=== PATIENT | male | born 1945 | race Caucasian/White ===

== ENCOUNTER → 2016-12-12 | Outpatient (CLI) | payer MEDICARE, OTHER ==
[~2016-12-12] MED LIST: ASPI81TA82 PO; ATOR40TA49 PO; CARV3.12 PO; CIPR500T4 PO; DIPH1TAB36 PO; RAMI10CA PO
[2016-12-12 09:55] LABS: BICARBONATE 24.4 MEQ/L (21.0-32.0); POTASSIUM 4.3 MEQ/L (3.5-5.1)
== END ==
LOC: PLAB 06:53
PROVIDERS: ATTEND Family Medicine
DX: I25.9 Chronic ischemic heart disease, unspecified (principal); N18.3 Chronic kidney disease, stage 3 (moderate)
CPT/HCPCS: 36415; 80048

== ENCOUNTER → 2017-03-09 | Outpatient (CLI) | payer MEDICARE, OTHER | LOC: PLAB 08:11 | PROVIDERS: ATTEND Surgery Vascular Surgery | DX: I73.9 Peripheral vascular disease, unspecified (principal) | CPT/HCPCS: 36415; 82565; 84520 ==

== ENCOUNTER → 2017-04-02 | Outpatient (CLI) | payer MEDICARE, OTHER ==
[2017-04-02 09:54] LABS: AUTOMATED NEUTROPHIL # 3.9 TH/MM3 (1.8-7.7); BASOPHIL % 0.7 % (0.0-2.0); EOSINOPHIL # 0.2 TH/MM3 (0-0.4); EOSINOPHIL % 2.5 % (0.0-4.0); HEMATOCRIT 44.8 % (39.0-51.0); HEMO FLAGS DIFF FINAL; LYMPH % 29.5 % (9.0-44.0); LYMPHOCYTE # 2.1 TH/MM3 (1.0-4.8); MEAN CELL VOLUME 90.9 FL (80.0-100.0); MEAN CORPUSCULAR HEMOGLOBIN 30.9 PG (27.0-34.0); MONO % 11.7 % (0.0-8.0); NEUT % 55.6 % (16.0-70.0); PLATELET COUNT 145 TH/MM3 (150-450); RED BLOOD COUNT 4.93 MIL/MM3 (4.50-5.90); RED CELL DISTRIBUTION WIDTH 14.3 % (11.6-17.2)
[2017-04-02 10:23] LABS: ALT (GPT) 31 U/L (12-78); ANION GAP 11 MEQ/L (5-15); AST (GOT) 22 U/L (15-37); BICARBONATE 23.4 MEQ/L (21.0-32.0); BLOOD UREA NITROGEN 36 MG/DL (7-18); CHLORIDE 106 MEQ/L (98-107); GLOMERULAR FILTRATION RATE 37 ML/MIN (>89); GLUCOSE,FASTING 107 MG/DL (74-99); POTASSIUM 4.5 MEQ/L (3.5-5.1); SODIUM (NA) 140 MEQ/L (136-145)
[2017-04-02 10:26] LABS: ALKALINE PHOSPHATASE 87 U/L (45-117); HDL CHOLESTEROL 32.5 MG/DL (40.0-60.0); LDL CHOLESTEROL 86 MG/DL (0-99); TOTAL BILIRUBIN ADULT 0.7 MG/DL (0.2-1.0)
== END ==
LOC: PLAB 06:33
PROVIDERS: ATTEND Family Medicine
DX: I43 Cardiomyopathy in diseases classified elsewhere (principal); E78.2 Mixed hyperlipidemia; I12.9 Hypertensive chronic kidney disease with stage 1 through stage 4 chronic kidney disease, or unspecified chronic kidney disease; N18.3 Chronic kidney disease, stage 3 (moderate)
CPT/HCPCS: 36415; 80053; 80061; 85025

== ENCOUNTER → 2017-05-21 | Outpatient (CLI) | payer MEDICARE, OTHER ==
[~2017-05-21] MED LIST changes: +ASPI81CH37 CHEW; +ATOR40TA16 PO; +CARV6.252 PO; +DOXA1TAB35 PO; +PLAV75TA29 PO; +PRAS10TA PO; +RAMI5CAP PO; +tylenol
[2017-05-21 09:16] LABS: AUTOMATED NEUTROPHIL # 4.6 TH/MM3 (1.8-7.7); BASOPHIL # 0.1 TH/MM3 (0-0.2); BASOPHIL % 0.9 % (0.0-2.0); EOSINOPHIL # 0.2 TH/MM3 (0-0.4); EOSINOPHIL % 2.3 % (0.0-4.0); HEMATOCRIT 41.3 % (39.0-51.0); HEMO FLAGS DIFF FINAL; LYMPH % 26.7 % (9.0-44.0); LYMPHOCYTE # 2.1 TH/MM3 (1.0-4.8); MEAN CELL VOLUME 90.9 FL (80.0-100.0); MEAN CORPUSCULAR HEMOGLOBIN 29.7 PG (27.0-34.0); MEAN CORPUSCULAR HGB CONC 32.7 % (32.0-36.0); MONO % 10.8 % (0.0-8.0); NEUT % 59.3 % (16.0-70.0); PLATELET COUNT 129 TH/MM3 (150-450); RED BLOOD COUNT 4.54 MIL/MM3 (4.50-5.90); RED CELL DISTRIBUTION WIDTH 14.3 % (11.6-17.2); WHITE BLOOD COUNT 7.8 TH/MM3 (4.0-11.0)
[2017-05-21 09:39] LABS: BICARBONATE 24.6 MEQ/L (21.0-32.0); POTASSIUM 4.6 MEQ/L (3.5-5.1)
== END ==
LOC: PLAB 06:41
PROVIDERS: ATTEND Internal Medicine Nephrology
DX: N18.3 Chronic kidney disease, stage 3 (moderate) (principal)
CPT/HCPCS: 36415; 80069; 85025

== ENCOUNTER 2017-05-28 06:31 | Observation (INO) | payer MEDICARE, OTHER ==
[~2017-05-28] VITALS: Ht 182.9 cm; Wt 85.3 kg
[2017-05-28] VITALS (12 sets, daily range): BP systolic 123–143; BP diastolic 66–85; PULSE 64–75; RESP 16–20; TEMP 95.8–98.2; O2SAT 92–97
[~2017-05-28 06:31] MED LIST changes: -ASPI81CH37 CHEW; -ATOR40TA16 PO; -CARV6.252 PO; -DOXA1TAB35 PO; -PLAV75TA29 PO; -PRAS10TA PO; -RAMI5CAP PO; -tylenol
[2017-05-28] MEDS ORDERED: CARV6.252 PO (07:00)
[2017-05-28] MEDS ORDERED: SODIUM BICARBONATE 154 MEQ/1000 ML NS IV SCH ×2 (07:00)
[2017-05-28] MEDS ORDERED: SODIUM CHLORIDE 0.9% FLUSH 10 ML FLUSH IV FLUSH PRN ×2 (07:00)
[2017-05-28] MEDS ORDERED: ATOR40TA16 PO (07:00)
[2017-05-28] MEDS ORDERED: DOXA1TAB35 PO (07:00)
[2017-05-28] MEDS ORDERED: tylenol (07:00)
[2017-05-28] MEDS ORDERED: RAMI5CAP PO (07:00)
[2017-05-28] MEDS ORDERED: ASPI81CH37 CHEW (07:00)
[2017-05-28] MEDS ORDERED: SODIUM CHLOR 0.9% 1000 ML INJ 1,000 ML IV ONE (07:00)
[2017-05-28 07:20] LABS: APTT (PATIENT) 26.5 SEC (24.3-30.1); PROTHROMBIN TIME - PATIENT 10.8 SEC (9.8-11.6)
[2017-05-28] MEDS ORDERED: MIDAZOLAM HCL 5 MG/5 ML VIAL ONE (09:01)
[2017-05-28] MEDS ORDERED: fentaNYL CITRATE 250 MCG/5 ML AMP ONE (09:02)
[2017-05-28] MEDS ORDERED: ceFAZolin 2 GM PREMIX 50 ML ONE (10:38)
[2017-05-28] MEDS ORDERED: MIDAZOLAM HCL 2 MG/2 ML VIAL ONE ×2 (10:57→12:21)
[2017-05-28 10:58] LABS: P2Y12 REACTION UNITS (PRU) 308 PRU (194-418)
[2017-05-28] MEDS ORDERED: HEPARIN SODIUM - IV 10,000 UNITS/10 ML VIAL ONE (12:23)
[2017-05-28] MEDS ORDERED: HEPARIN-D5W INJ 250 ML ONE (12:52)
[2017-05-28] MEDS ORDERED: HYDROmorphone HCL PF 1 MG/ML VIAL IVS PRN ×2 (14:45)
[2017-05-28] MEDS ORDERED: oxyCODONE/ACETAMINOPHEN 5 MG/325 MG TAB PO PRN ×2 (14:45)
--- NOTE | 2017-05-28 14:55 | PD.RAD ---
Post Procedure Progress Note Pre Procedure Diagnosis: (1) PAD (peripheral artery disease) (2) Claudication of both lower extremities Post Procedure Diagnosis: (1) PAD (peripheral artery disease) (2) Claudication of both lower extremities Procedure Date: May 28, 2017 Supervising Radiologist: Carlos Short Proceduralist/Assist: Lai Muñoz, RT(R), Marylou Baires, RT(R)() Estimated blood loss: 100 ml Anesthesia: Local, Conscious Sedation Plan of Activity Patient to Unit: ROPU Patient Condition: Good See PACS Report for procedural detail/treatment Vascular-Arterial Procedure Procedure 1 Procedure Site: Bilateral Leg Procedure(s): Angiogram, Angioplasty, Atherectomy Access Access Site(s): Right Femoral Artery, Left Femoral Artery Closure Site(s): Right vascular closure device, Left vascular closure device Treament Area: right common iliac stent left SFA atherectomy and angioplasty left profunda angioplasty Plan continue heparin drip and bicarbonate hydration until 8 PM loading dose of plavix 23hr observation check labs in AM Carlos Short MD May 28, 2017 14:55
[2017-05-28] MEDS ORDERED: CLOPIDOGREL 75 MG TAB PO SCH (15:00)
[2017-05-28] MEDS ORDERED: IODIXANOL 320 MG/ML 50 ML VIAL (for RAD SPEC) I-ARTERIAL ONE (15:00)
[2017-05-28] MEDS ORDERED: CLOPIDOGREL 300 MG TAB PO ONE (15:50)
[2017-05-28] MEDS ORDERED: HEPARIN-D5W INJ 250 ML IV SCH (16:00)
[2017-05-28] MEDS ORDERED: PILL SPLITTER OTHER PRN (16:00)
[2017-05-28] MEDS ORDERED: ONDANSETRON HCL 4 MG/2 ML VIAL ONE (16:19)
--- NOTE | 2017-05-28 18:26 | HHI.HP ---
[facility] Estevan Chiu MD Admission Diagnosis Diagnoses: Chief Complaint: Leg pain Travel History International Travel<30 Days: No Contact w/Intl Traveler <30 Da: No Traveled to Known Affected Are: No History of Present Illness Written by Mitchel Massey, acting as scribe for Dr. Garcia on 05/28/17 at 18: 09. Patient is a 72-year-old male with primary medical history of HTN, HLD, [place], PAD who came into the hospital for elective surgery. Patient has increasing pain with walking 1 year, left worse than her right. He also states it was burning and he needs to rest every time he walks a few steps. She is status post bilateral angiogram, angioplasty with endovascular repair by Dr. Short. Patient complains of nausea and had 1 vomiting. On exam he states it has resolved slightly. Patient verified his past medical history and surgical histories. Denies pain and discomfort. Denies SOB/ dyspnea. Denies chest pain , palpitations, headaches, dizziness. Denies fevers, chills, diarrhea. Denies dysuria. Review of Systems Except as stated in HPI: all other systems reviewed are Neg Past Family Social History Past Medical History HTN HLD PAD [place] 4 CAD Past Surgical History In 2005 Stents, angioplasty Left knee replacement Reported Medications Reported Meds & Active Scripts Active Reported [tylenol] Doxazosin (Doxazosin Mesylate) 2 Mg Tab 2 Mg PO DAILY Ramipril 5 Mg Cap 5 Mg PO DAILY Carvedilol 6.25 Mg Tab 6.25 Mg PO BID Atorvastatin (Atorvastatin Calcium) 40 Mg Tab 40 Mg PO HS Aspirin Low Dose (Aspirin) 81 Mg Chew 81 Mg CHEW DAILY Cipro (Ciprofloxacin HCl) 500 Mg Tab 500 Mg PO BID Carvedilol 3.125 mg (Carvedilol) 3.125 Mg Tab 0.5 Tab PO BID Lipitor 40 Mg Tab (Atorvastatin Calcium) 40 Mg Tab 40 Mg PO HS Aspir-81 (Aspirin) 81 Mg Tab 81 Mg PO HS Altace (Ramipril) 10 Mg Cap 5 Mg PO HS Tylenol Pm (Acetaminophen/Diphenhydramine HCl) Tab 2 Tab PO HS Allergies: Coded Allergies: Morphine (Verified Allergy, Severe, Hallucinations, 04/08/12) PT DENIES ALLERGY STATES MORE OF A REACTION Active Ordered Medications Current Medications Medications (Trade) Dose Ordered Sig/Gui Route Start Time Stop Time Status Last Admin (Sodium Bicarbonate 8.4% Inj/NS 1000 ml Inj) 1,000 ml @ 0 mls/hr TITRATE IV 05/28/17 07:00 05/29/17 06:59 05/28/17 07:36 (NS Flush) 2 ml UNSCH PRN IV FLUSH 05/28/17 07:00 (NS Flush) 2 ml UNSCH PRN IV FLUSH 05/28/17 07:00 (Dilaudid Pf Inj) 1 mg Q3H PRN IVS 05/28/17 14:45 (Percocet 5-325 Mg) 1 tab Q4H PRN PO 05/28/17 14:45 05/28/17 16:08 (Dilaudid Pf Inj) 1 mg UNSCH PRN IVS 05/28/17 14:45 Oxycodone/ Acetaminophen 1 tab 1 tab UNSCH PRN PO 05/28/17 14:45 (Heparin-D5W Inj) 250 ml @ 0 mls/hr TITRATE IV 05/28/17 16:00 05/28/17 20:00 (Plavix) 75 mg DAILY PO 05/29/17 08:00 (Aspirin Chew) 81 mg DAILY CHEW 05/29/17 09:00 (Lipitor) 40 mg HS PO 05/28/17 21:00 (Coreg) 1.5625 mg BID PO 05/28/17 21:00 (Cardura) 2 mg DAILY PO 05/29/17 09:00 (Altace) 5 mg DAILY PO 05/29/17 09:00 (Pill Splitter) 1 ea UNSCH PRN OTHER 05/28/17 16:00 (Zofran Inj) 4 mg Q6HR PRN IV PUSH 05/28/17 18:00 Family History States brother has heart problems also Social History Denies alcohol use Former smoker, quit 11 years ago Denies illicit drug use Physical Exam Vital Signs Vital Signs Date Time Temp Pulse Resp B/P Pulse Ox O2 Delivery O2 Flow Rate FiO2 05/28/17 16:30 72 16 123/70 96 05/28/17 16:00 72 16 128/76 96 05/28/17 15:30 66 16 143/78 96 05/28/17 15:00 75 16 137/79 96 05/28/17 14:30 68 16 140/83 96 05/28/17 14:15 68 16 134/79 96 05/28/17 14:00 66 16 125/76 95 05/28/17 13:45 69 16 127/77 95 05/28/17 13:30 96.0 70 16 129/85 95 05/28/17 07:06 96 Room Air 05/28/17 06:49 98.2 71 20 138/73 92 Physical Exam GENERAL: This is a well-nourished, well-developed patient, in no apparent distress. SKIN: No rashes, ecchymoses or lesions. Cool and dry. HEAD: Atraumatic. Normocephalic. No temporal or scalp tenderness. EYES: Pupils equal round and reactive. Extraocular motions intact. No scleral icterus. No injection or drainage. ENT: Nose without bleeding. Throat without erythema. Uvula midline. Airway patent. NECK: Trachea midline. Supple, nontender, no meningeal signs. CARDIOVASCULAR: Regular rate and rhythm without murmurs, gallops, or rubs. PPM left chest. RESPIRATORY: Clear to auscultation. Breath sounds equal bilaterally. No wheezes , rales, or rhonchi. GASTROINTESTINAL: Abdomen soft, non-tender, nondistended. Hypoactive bowel sounds MUSCULOSKELETAL: Extremities without clubbing, cyanosis, or edema. Bilateral lower extremity warm, pulses palpable DP/PT bilaterally. Bilateral groin with dressing, right groin soiled intact, left groin clean dry and intact. NEUROLOGICAL: Awake and alert. Oriented person, place, time. Motor and sensory grossly within normal limits. Normal speech. Laboratory Laboratory Tests Test 05/28/17 05/28/17 07:02 10:21 Prothrombin Time 10.8 Prothromb Time International 1.0 Ratio Activated Partial 26.5 Thromboplast Time Platelet Function P2Y12 React 308 Units Blood Urea Nitrogen 23 Creatinine 1.24 Estimat Glomerular Filtration 57 Rate Result Diagram: 05/28/17 1021 Assessment and Plan Problem List: (1) Claudication of both lower extremities ICD Code: I73.9 Status: Acute (2) PAD (peripheral artery disease) ICD Code: I73.9 Status: Acute (3) HLD (hyperlipidemia) ICD Code: E78.5 Status: Chronic (4) HTN (hypertension) ICD Code: I10 Status: Chronic (5) CAD (coronary artery disease) ICD Code: I25.10 Status: Chronic Assessment and Plan Patient is a 72-year-old male with primary medical history of HTN, HLD, [place], PAD who came into the hospital for elective surgery. PAD Status post bilateral angiogram, angioplasty with endovascular repair by Dr. Short - As per Dr. Short, continue heparin drip, and bicarbonate for hydration until 8 PM - Monitor Bilateral Groin insertion sites for bleeding - Pain management with Dilaudid IV, Percocet - Follow up labs in a.m CAD, Hx CABG HTN HLD - Continue home meds ASA 81 mg, doxazosyn 2mg daily, ramipril 5 mg daily, Plavix 75 mg daily, carvedilol 1.5625 mg - Continue atorvastatin 40 mg - Monitor BP trend Nausea, vomiting - Possibly anesthesia related. No abdominal cramping. - Zofran when necessary DVT prop on heparin drip Code Status Full Code Discussed Condition With Patient, nursing Mitchel Robertson May 28, 2017 18:26 Lolis Garcia MD May 28, 2017 18:32
[2017-05-28] MEDS ORDERED: ONDANSETRON HCL 4 MG/2 ML VIAL IV ONE (18:45)
[2017-05-28] MEDS: CARVEDILOL 3.125 MG TAB PO SCH (20:49)
[2017-05-28] MEDS ORDERED: ATORVASTATIN 40 MG TAB PO SCH (21:00)
[2017-05-29] VITALS: BP 98/53; PULSE 71; RESP 18; TEMP 96.1; O2SAT 93
[2017-05-29 04:00] VITALS: BP 125/67; PULSE 73; RESP 18; TEMP 96.9; O2SAT 93
[2017-05-29] MEDS: ONDANSETRON HCL 4 MG/2 ML VIAL IV PUSH PRN ×2 (06:17→11:55)
[2017-05-29 07:03] LABS: P2Y12 REACTION UNITS (PRU) 284 PRU (194-418)
[2017-05-29 07:07] LABS: BICARBONATE 27.8 MEQ/L (21.0-32.0); POTASSIUM 3.5 MEQ/L (3.5-5.1)
[2017-05-29 08:00] VITALS: BP 123/60; PULSE 72; RESP 18; TEMP 97.6; O2SAT 95
[2017-05-29] MEDS ORDERED: CLOPIDOGREL 75 MG TAB PO SCH (08:00)
[2017-05-29] MEDS: CARVEDILOL 3.125 MG TAB PO SCH (08:14)
--- NOTE | 2017-05-29 08:23 | PD.RAD ---
Radiology Note Pt feels well, resing comfortably groin sites are clean with 2+ pulses, pedal pulses stable AM renal labs stable, Plavix non-responder. Switch to Effient OK to D/C after loading dose F/U withme next week Carlos Short MD May 29, 2017 08:23
[2017-05-29] MEDS ORDERED: ASPIRIN 81 MG CHEW TAB CHEW SCH (09:00)
[2017-05-29] MEDS ORDERED: DOXAZOSIN MESYLATE 2 MG TAB PO SCH (09:00)
[2017-05-29] MEDS ORDERED: RAMIPRIL 5 MG CAP PO SCH (09:00)
[2017-05-29] MEDS ORDERED: PLAV75TA29 PO (09:16)
[2017-05-29] MEDS ORDERED: PRAS10TA PO (09:16)
[2017-05-29] MEDS ORDERED: PRASUGREL 10 MG TAB PO ONE (09:30)
[2017-05-29 12:00] VITALS: BP 132/66; PULSE 70; RESP 20; TEMP 95.5; O2SAT 96
--- NOTE | 2017-06-01 11:38 | RADRPT ---
EXAM DATE/TIME: 05/28/2017 09:10 [place] COMPARISON: No previous studies available for comparison. INDICATIONS : Patient with bilateral arterial leg stenosis with claudication in need of angiogram with possible int erventions. MEDICAL HISTORY : 1.[place] x 5 2.Renal disease 3.CKD 4.PVD 5.Arthritis SURGICAL HISTORY : 1.Pacemaker 2.5 vessel CABG 3.Left TKR dental implant ENCOUNTER: Initial ACUITY: > 1 year PAIN SCORE: 0/10 FLUORO TIME: 44.4 minutes IMAGE SERIES: 18 ACCESS SITE: Right SEDATION TIME: 210 minutes CONTRAST: 1.) 88 cc Visipaque (iodixanol) MEDICATION(S): 1.) 8 mg midazolam (Versed) IV 2.) 400 mcg fentanyl (Sublimaze) IV 3.) 58193 units Heparin IV 4.) 2 g cefazolin (Ancef) IV Intra-procedural antibiotics were given as prescribed above. Periprocedural sodium bicarbonate hydrat ion was administered as a renal protective measure. DEVICE(S): 1.) Right superficial femoral artery Perclose x2 2.) Right common iliac artery Visi-pro 10mm x 27mm stent (balloon expanding) 3.) Left superficial femoral artery 7mm SpideRX embolic protection 4.) Left superficial femoral artery Turbohawk LS-M atherectomy device 5.) Left superficial femoral artery 7mm x 150mm Program Schedule Clerk INFORMATION TECHNOLOGY ACCOUNT MANAGER balloon 6.) Left profunda artery 7mm x 20mm Program Schedule Clerk INFORMATION TECHNOLOGY ACCOUNT MANAGER balloon 7.) Left common femoral artery 6F Angio-Seal PROCEDURE : 1. Ultrasound-guided puncture of the right superficial femoral artery access site. 2. Angiography of the right superficial femoral artery access site prior to closure device. 3. Conscious sedation with continuous EKG and Oximetry monitoring. 4. Percutaneous closure of the right superficial femoral artery access site. 5. non-selective aortic catheterization 6. pelvis and right common iliac artery 7. right common iliac artery primary vascular stent placement and angioplasty 8. Ultrasound-guided antegrade puncture of the left common femoral artery 9. Selective catheterization, left superficial femoral artery from antegrade left common femoral appr oach 10. Percutaneous atherectomy, left superficial femoral artery 11. Selective arteriography, left superficial femoral artery and left leg runoff arteriography 12. Distal protection filter utilization for atherectomy, left superficial femoral artery 13. Left superficial femoral artery angioplasty 14. Selective catheterization, left deep femoral artery from antegrade left common femoral artery reji rosenberg 15. Selective arteriography, left deep femoral artery 16. Angioplasty, left deep femoral artery 17. Percutaneous closure of the left common femoral artery access site The patient was placed supine on the angiography table. The right groin was prepped in sterile fashio n. Full sterile technique was used, including cap, mask, sterile gloves and gown and a large sterile sheet. Hand hygiene and 2% chlorhexidine and/or betadine/alcohol prep was utilized per protocol for c utaneous antisepsis. The skin and subcutaneous tissues were infiltrated with lidocaine solution. Blun t dissection was utilized to free up the tissues superficial to the proximal superficial femoral alex ry. The superficial femoral artery was selected for access because it was a healthy-appearing, widely patent large caliber vessel, free of significant calcific disease and amenable to ProGlide closure. It was also felt that passage of the large caliber sheath through the mildly stenotic superficial fem oral artery origin would provide some degree of protection against distal embolization during right i liac endovascular repair. Under direct ultrasound guidance, micropuncture access was accomplished int o the proximal superficial femoral artery allowing placement of a 4 [place] vascular sheath. The ultra sound images depicting access guidance were saved and stored to PACS for permanent record. An angled Glidewire was manipulated with little difficulty through the stenotic right common iliac ar galdino into the abdominal aorta. Digital subtraction pelvic arteriography was then performed utilizing an Omni Flush catheter. Critical stenotic narrowing was confirmed involving the proximal right common iliac artery. Wire exchange was performed with placement of a stiff angled Glidewire into the abdomi nal aorta. A pair of ProGlide sutures were then deployed into the arteriotomy utilizing the preclose technique. The sutures were clamped and set aside in the sterile field. A 7 [place] 25 cm pedicle olivia th was introduced and passed into the low abdominal aorta without difficulty. A 10 mm x 27 mm Visi-Pr o stent was then introduced and deployed across the proximal common iliac stenosis. The balloon was t aken to nominal inflation pressure. The proximal and distal ends of the stent were then flared slight ly with the balloon taken to supra-nominal pressure. An excellent angiographic result was achieved. Attention was then turned to manipulation over the aortic bifurcation. The Omni flush catheter was us ed to direct the glide wire down the left iliac system. The Omni flush catheter followed without diff iculty into the left common femoral. Left leg runoff arteriography was then performed. I was unable t o manipulate an 8 [place] sheath up and over the aortic bifurcation secondary to acute angulation at t he bifurcation and stiff calcification of the vessels. The sheath was therefore removed and the arter iotomy closed with ProGlide sutures. Hemostasis was augmented with placement of a hemostatic patch. Attention was then turned to antegrade puncture of the contralateral left common femoral artery which was performed under direct ultrasound guidance utilizing micropuncture technique. The ultrasound mildred ges depicting guidance were saved and stored to PACS for permanent record. A 4 [place] vascular sheath was inserted. An angled Glidewire was manipulated with little difficulty into the proximal superfici al femoral artery and through the stenotic area into the distal superficial femoral artery the aid of a Berenstein 4 [place] catheter.. A 10 cm 7 [place] sheath was introduced and secured. Wire e xchange was performed through a Berenstein catheter with placement of a V-14 wire down into the dista l left SFA. A 7 mm SpiderFX distal protection filter was then introduced and deployed into the distal SFA. A SilverHawk LS-M atherectomy catheter was introduced and used to perform percutaneous atherect muna of severe disease throughout the proximal SFA. Multiple passes were made with return of significa nt atheromatous debris. After completion, the SpiderFX filter was removed and was also found to conta in significant embolized debris. The treated area was then dilated using a 7 mm x 15 cm Program Schedule Clerk angioplasty balloon utilizing a single slow prolonged balloon inflation with the balloon taken to profile at sub-nominal pressure. An excel lent angiographic result was achieved. Distal runoff is confirmed to be stable. Finally, the profunda was selectively catheterized with an angled Glidewire and Berenstein catheter c ombination. Selective arteriography was performed. High-grade concentric stenosis of the profunda rayray gin was treated utilizing a 7 mm x 2 cm Program Schedule Clerk angioplasty balloon utilizing a single slow prolonged balloon inflation. Completion arteriography room in excellent angiographic result. The left femoral sheath was removed and arteriotomy closed with the Angio-Seal device. Hemostasis was achieved immediately. The patient tolerated the procedure well and was taken to the recovery area in good stable condition. FINDINGS: Critical eccentric calcific stenosis involving the proximal right common iliac artery confirmed and t reated successfully with stent placement and angioplasty. Moderate calcific disease involving the rig ht common femoral artery, superficial femoral artery and profunda origins identified, however not fel t significantly flow-limiting at present. On the left, severe disease in the proximal left superficia l femoral artery was found to have progressed to short occlusion. The vessel was treated successfully with atherectomy and angioplasty as described. A more distal SFA is notable for patchy mild eccentri c stenosis continuing into the popliteal. Single vessel left calf runoff present via anterior tibial artery. Critical concentric stenosis at the origin of the left profunda treated with balloon angiopla sty. CONCLUSION: Successful bilateral lower extremity arterial endovascular repair is as described in detail above. Carlos Short MD on June 01, 2017 at 10:37 Board Certified Radiologist. This report was verified electronically.
== END 2017-05-29 13:24 | disposition home or self-care (01) ==
LOC: HROP 06:31 → HRIP 06:34 → HROP 14:29 → N07B 18:30
PROVIDERS: ADMIT Family Medicine; ATTEND Family Medicine
DX: I70.213 Atherosclerosis of native arteries of extremities with intermittent claudication, bilateral legs (principal); R11.2 Nausea with vomiting, unspecified; I25.10 Atherosclerotic heart disease of native coronary artery without angina pectoris; I12.9 Hypertensive chronic kidney disease with stage 1 through stage 4 chronic kidney disease, or unspecified chronic kidney disease; N18.9 Chronic kidney disease, unspecified; E78.5 Hyperlipidemia, unspecified; I25.2 Old myocardial infarction; M19.90 Unspecified osteoarthritis, unspecified site; Z79.899 Other long term (current) drug therapy; Z87.891 Personal history of nicotine dependence; Z95.1 Presence of aortocoronary bypass graft; Z95.0 Presence of cardiac pacemaker
CPT/HCPCS: 37224; 37225; 37236; 75710; 76937; 80048; 82565; 84520; 85347; 85576; 85610; 85730; 99152; 99153; C1714; C1725; C1760; C1769; C1876; C1884; C1887; C1894; G0378; J0690; J1644; J2250; J2405; J3010; J7030; Q9967

== ENCOUNTER 2017-06-02 12:57 | Day surgery (SDC) | payer MEDICARE, OTHER ==
[~2017-06-02 12:57] MED LIST changes: +ASPI81CH37 CHEW; -ASPI81TA82 PO; +ATOR40TA16 PO; -ATOR40TA49 PO; -CARV3.12 PO; +CARV6.252 PO; -CIPR500T4 PO; -DIPH1TAB36 PO; +DOXA1TAB35 PO; +PLAV75TA29 PO; +PRAS10TA PO; -RAMI10CA PO; +RAMI5CAP PO; +tylenol
[2017-06-02 13:11] VITALS: BP 118/62; PULSE 78; RESP 20; TEMP 98.6; O2SAT 92
--- NOTE | 2017-06-02 17:40 | RADRPT ---
EXAM DATE/TIME: 06/02/2017 13:11 INDICATIONS : F/U angiogram OBJECTIVE: Temperature: 98.6 Heart Rate: 78 Blood Pressure: 118/62 Respiratory: 20 Oximetry: 92 PNEUMONIA VACCINE: YES HISTORY OF PRESENT ILLNESS: The patient is recently status post bilateral lower extremity arteriography with endovascular repairs May 28, 2017. He is doing well with better exercise tolerance and decrease in lower extremity claudi cation. PAST MEDICAL HISTORY : 1. Myocardial infarction. 2. Hypercholesterolemia. 3. Arthritis. PAST SURGICAL HISTORY : 1. CABG 2. pacemaker 3. left knee replacement 4. angioplasty 5. iliac stent SOCIAL HISTORY : Tobacco;former. ALLERGIES: 1. Morphine MEDICATIONS: 1. [id number] mg q.d. 2. atorvastatin 40 mg q.h.s. 3. Coreg (Carvedilol) 6.25 mg b.i.d. 4. Plavix (Clopidogrel Bisulfate) 75 mg q.d. 5. doxazosin 2 mg q.d. 6. effient 10 mg q.d. 7. ramipril 5 mg q.d. PHYSICAL EXAMINATION: Mild bruising in the right groin region. No evidence of mass or hematoma. 2+ groin pulse. Left groin is normal in appearance with no evidence of swelling, bruising or erythema. Normal pulse. PULSES: 2+ palpable left anterior tibial pulses at the left ankle. Doppler left posterior tibial. Strong Doppler signal in both dorsalis pedis and posterior tibial vessels at the right ankle. No evidence of distal embolic complication in either foot. Normal strength and sensation. ASSESSMENT: Patient doing well following lower extremity arteriography and endovascular repair. PLAN: Continued full dose aspirin and Plavix antiplatelet therapy. Walking regimen. Recommend clinical followup and ABIs in 4-6 months. Carlos Short MD on June 02, 2017 at 17:33 Board Certified Radiologist. This report was verified electronically.
== END 2017-06-02 13:49 | disposition home or self-care (01) ==
LOC: HROP 12:57 → HRIP 12:57 → HROP 13:49
PROVIDERS: ATTEND Radiology Body Imaging
DX: Z09 Encounter for follow-up examination after completed treatment for conditions other than malignant neoplasm (principal); I73.9 Peripheral vascular disease, unspecified; E78.00 Pure hypercholesterolemia, unspecified; I25.2 Old myocardial infarction

== ENCOUNTER → 2017-10-01 | Outpatient (CLI) | payer MEDICARE, OTHER ==
[~2017-10-01] MED LIST changes: -ASPI81CH37 CHEW; +ASPI81CH6 CHEW
[2017-10-01 09:51] LABS: AUTOMATED NEUTROPHIL # 4.3 TH/MM3 (1.8-7.7); BASOPHIL # 0.1 TH/MM3 (0-0.2); BASOPHIL % 0.9 % (0.0-2.0); EOSINOPHIL # 0.2 TH/MM3 (0-0.4); EOSINOPHIL % 3.1 % (0.0-4.0); HEMO FLAGS DIFF FINAL; LYMPH % 29.8 % (9.0-44.0); LYMPHOCYTE # 2.3 TH/MM3 (1.0-4.8); MEAN CELL VOLUME 91.3 FL (80.0-100.0); MONO % 9.9 % (0.0-8.0); NEUT % 56.3 % (16.0-70.0); PLATELET COUNT 126 TH/MM3 (150-450); RED BLOOD COUNT 4.72 MIL/MM3 (4.50-5.90); RED CELL DISTRIBUTION WIDTH 14.3 % (11.6-17.2); WHITE BLOOD COUNT 7.6 TH/MM3 (4.0-11.0)
[2017-10-01 10:17] LABS: ALT (GPT) 31 U/L (12-78); ANION GAP 8 MEQ/L (5-15); AST (GOT) 23 U/L (15-37); BICARBONATE 26.2 MEQ/L (21.0-32.0); BLOOD UREA NITROGEN 23 MG/DL (7-18); CHLORIDE 106 MEQ/L (98-107); GLOMERULAR FILTRATION RATE 42 ML/MIN (>89); GLUCOSE,FASTING 98 MG/DL (74-99); POTASSIUM 4.4 MEQ/L (3.5-5.1); SODIUM (NA) 140 MEQ/L (136-145)
[2017-10-01 10:19] LABS: ALKALINE PHOSPHATASE 82 U/L (45-117); HDL CHOLESTEROL 34.5 MG/DL (40.0-60.0); LDL CHOLESTEROL 73 MG/DL (0-99); TOTAL BILIRUBIN ADULT 0.5 MG/DL (0.2-1.0)
== END ==
LOC: PLAB 06:39
PROVIDERS: ATTEND Family Medicine
DX: I10 Essential (primary) hypertension (principal); I25.9 Chronic ischemic heart disease, unspecified; I73.9 Peripheral vascular disease, unspecified; N18.3 Chronic kidney disease, stage 3 (moderate)
CPT/HCPCS: 36415; 80053; 80061; 85025

== ENCOUNTER → 2018-01-01 | Outpatient (CLI) | payer MEDICARE, OTHER ==
[2018-01-01 09:34] LABS: BASOPHIL # 0.1 TH/MM3 (0-0.2); BASOPHIL % 0.9 % (0.0-2.0); EOSINOPHIL # 0.2 TH/MM3 (0-0.4); EOSINOPHIL % 2.1 % (0.0-4.0); HEMATOCRIT 41.8 % (39.0-51.0); HEMOGLOBIN 14.4 GM/DL (13.0-17.0); LYMPHOCYTE # 2.8 TH/MM3 (1.0-4.8); MEAN CELL VOLUME 90.2 FL (80.0-100.0); MEAN CORPUSCULAR HGB CONC 34.4 % (32.0-36.0); MEAN PLATELET VOLUME 8.5 FL (7.0-11.0); MONOCYTE # 0.8 TH/MM3 (0-0.9); PLATELET COUNT 255 TH/MM3 (150-450); RED BLOOD COUNT 4.64 MIL/MM3 (4.50-5.90); RED CELL DISTRIBUTION WIDTH 14.5 % (11.6-17.2); WHITE BLOOD COUNT 8.9 TH/MM3 (4.0-11.0)
[2018-01-01 09:53] LABS: AST (GOT) 18 U/L (15-37); BICARBONATE 24.4 MEQ/L (21.0-32.0); BLOOD UREA NITROGEN 26 MG/DL (7-18); CALCIUM 9.3 MG/DL (8.5-10.1); CHLORIDE 106 MEQ/L (98-107); CREATININE 1.56 MG/DL (0.60-1.30); GLOMERULAR FILTRATION RATE 44 ML/MIN (>89); GLUCOSE,FASTING 105 MG/DL (74-99); SODIUM (NA) 139 MEQ/L (136-145)
[2018-01-01 09:54] LABS: ALT (GPT) 27 U/L (12-78); CHOLESTEROL 123 MG/DL (120-200); TRIGLYCERIDES 169 MG/DL (42-150)
[2018-01-01 09:59] LABS: ALKALINE PHOSPHATASE 91 U/L (45-117); CHOLESTEROL/ HDL RATIO 3.47 RATIO; HDL CHOLESTEROL 35.4 MG/DL (40.0-60.0); LDL CHOLESTEROL 54 MG/DL (0-99); TOTAL BILIRUBIN ADULT 0.6 MG/DL (0.2-1.0); TOTAL PROTEIN 7.3 GM/DL (6.4-8.2)
== END ==
LOC: PLAB 06:38
PROVIDERS: ATTEND Family Medicine
DX: I25.9 Chronic ischemic heart disease, unspecified (principal); E78.2 Mixed hyperlipidemia; I73.9 Peripheral vascular disease, unspecified; M51.37 Other intervertebral disc degeneration, lumbosacral region
CPT/HCPCS: 36415; 80053; 80061; 85025